=== PATIENT | female | born 1965 | race African-American/Black ===

== ENCOUNTER 2021-02-02 12:15 | Emergency (ER) | payer OTHER ==
[2021-02-02] MEDS ORDERED: hydroCHLOROthiazide 25 MG TAB ONE (14:29)
--- NOTE | 2021-02-02 17:17 | EDPHYS ---
Physician Documentation [facility] Name: Gloria Sanchez Age: 55 yrs Sex: Female : 1965 Arrival Date: 02/02/2021 Time: 12:16 Bed 19 Private MD: Bimal Acevedo E ED Physician [facility] HPI: 02/02 17:10 This 55 yrs old Black Female presents to ER via Ambulatory with complaints of Oscar jr8 blood pressure. 17:10 Patient stated that she was at PCP office today for routine evaluation. Stated that her jr8 BP was elevated there and directed her to ED for further evaluation. Denies any symptoms at this time. Severity of symptoms: At their worst the symptoms were very mild. chronic. The patient has been recently seen by a physician:. Historical: - Allergies: 13:02 Sulfa (Sulfonamide Antibiotics); iw 13:02 wool; iw - PMHx: 13:02 Hypertension; iw - PSHx: 13:02 Cholecystectomy; iw - Immunization history:: Adult Immunizations not up to date. - Social history:: Smoking status: Patient denies any tobacco usage or history of. ROS: 17:10 Eyes: Negative for injury, pain, redness, and discharge, ENT: Negative for injury, jr8 pain, and discharge, Neck: Negative for injury, pain, and swelling, Cardiovascular: Negative for chest pain, palpitations, and edema, Respiratory: Negative for shortness of breath, cough, wheezing, and pleuritic chest pain, Abdomen/GI: Negative for abdominal pain, nausea, vomiting, diarrhea, and constipation, Back: Negative for injury and pain, MS/Extremity: Negative for injury and deformity, Skin: Negative for injury, rash, and discoloration, Neuro: Negative for headache, weakness, numbness, tingling, and seizure. Exam: 17:10 Constitutional: This is a well developed, well nourished patient who is awake, alert, jr8 and in no acute distress. Cardiovascular: Regular rate and rhythm with a normal S1 and S2. No gallops, murmurs, or rubs. Normal PMI, no JVD. No pulse deficits. Respiratory: Lungs have equal breath sounds bilaterally, clear to auscultation and percussion. No rales, rhonchi or wheezes noted. No increased work of breathing, no retractions or nasal flaring. Abdomen/GI: Soft, non-tender, with normal bowel sounds. No distension or tympany. No guarding or rebound. No evidence of tenderness throughout. Skin: Warm, dry with normal turgor. Normal color with no rashes, no lesions, and no evidence of cellulitis. MS/ Extremity: Pulses equal, no cyanosis. Neurovascular intact. Full, normal range of motion. Neuro: Awake and alert, GCS 15, oriented to person, place, time, and situation. Cranial nerves II-XII grossly intact. Motor strength 5/5 in all extremities. Sensory grossly intact. Cerebellar exam normal. Normal gait. Vital Signs: 13:03 BP 200 / 110; Pulse 82; Resp 18 S; Temp 98.4; Pulse Ox 98% on R/A; Weight 146.06 kg; iw Height 5 ft. 4 in. (162.56 cm); 15:50 BP 175 / 113; Pulse 75; Resp 16 S; Pulse Ox 100% on R/A; ca1 17:24 BP 175 / 84; Pulse 73; Resp 16 S; Pulse Ox 100% on R/A; ca1 13:03 Body Mass Index 55.27 (146.06 kg, 162.56 cm) iw MDM: 16:37 Patient medically screened. 8 17:10 Data reviewed: vital signs, nurses notes, and as a result, I will discharge patient. jr8 Data interpreted: Pulse oximetry: on room air is 100 %. Interpretation: normal. Counseling: I had a detailed discussion with the patient and/or guardian regarding: the historical points, exam findings, and any diagnostic results supporting the discharge/admit diagnosis, the need for outpatient follow up, a family practitioner, to return to the emergency department if symptoms worsen or persist or if there are any questions or concerns that arise at home. ED course: Patient with Asymptomatic Primary essential HTN. Given PO meds here with moderate reduction in BP. Still remains asymptomatic. Will d/c home and refill her BP meds for her. Administered Medications: 14:23 Drug: HydrALAZINE 50 mg Route: PO; iw 17:00 Follow up: Response: No adverse reaction; Blood pressure is lowered ca1 17:17 Drug: Metoprolol 100 mg Route: PO; ca1 17:30 Follow up: Response: No adverse reaction; Blood pressure is lowered ca1 Disposition: 02/02/21 17:16 Discharged to Home. Impression: Essential (primary) hypertension. - Condition is Stable. - Discharge Instructions: Hypertension, DASH Eating Plan. - Prescriptions for hydralazine 25 mg Oral tablet - take 1 tablet by ORAL route 2 times per day with food; 60 tablet. Lasix 20 mg Oral Tablet - take 1 tablet by ORAL route once daily; 30 tablet. Metoprolol Tartrate 100 mg Oral Tablet - take 1 tablet by ORAL route 2 times per day with a meal; 60 tablet. - Medication Reconciliation Form, Thank You Letter, Antibiotic Education, Prescription Opioid Use form. - Follow up: Bimal Acevedo MD; When: 1 week; Reason: Recheck today's complaints, Continuance of care, Re-evaluation by your physician. - Problem is new. - Symptoms are unchanged. Addendum: 02/04/2021 07:16 Co-signature as Attending Physician, Srinivasa St MD I agree with the assessment and k dr plan of care. Signatures: Srinivasa St MD MD kdr Mary Marie, SHAILA RN iw Bright Nagel PA PA jr8 AcLesia baxter RN RN ca1 Corrections: (The following items were deleted from the chart) 02/02 17:28 17:16 02/02/2021 17:16 Discharged to Home. Impression: Essential (primary) ca1 hypertension. Condition is Stable. Forms are Medication Reconciliation Form, Thank You Letter, Antibiotic Education, Prescription Opioid Use. Follow up: Bimal Acevedo; When: 1 week; Reason: Recheck today's complaints, Continuance of care, Re-evaluation by your physician. Problem is new. Symptoms are unchanged. jr8
--- NOTE | 2021-02-02 17:17 | ER ---
Nurse's Notes [facility] Name: Gloria Sanchez Age: 55 yrs Sex: Female : 1965 Arrival Date: 02/02/2021 Time: 12:16 Bed 19 Private MD: Bimal Acevedo E Diagnosis: Essential (primary) hypertension Presentation: 02/02 12:59 Chief complaint: Patient states: was at Dr. Acevedo office, was sent over here because iw her BP was high, 200/110, states she had headache that lasted five minutes today and she had spots in her eyes the other day, states she had not taken her medicine before her appt, takes metoprolol and hydralazine, is out of her hydralazine but she did take her metoprolol before coming to ER. Coronavirus screen: At this time, the client does not indicate any symptoms associated with coronavirus-19. Ebola Screen: Patient negative for fever greater than or equal to 101.5 degrees Fahrenheit, and additional compatible Ebola Virus Disease symptoms Patient denies exposure to infectious person. Patient denies travel to an Ebola-affected area in the 21 days before illness onset. No symptoms or risks identified at this time. Initial Sepsis Screen: Does the patient meet any 2 criteria? No. Patient's initial sepsis screen is negative. Does the patient have a suspected source of infection? No. Patient's initial sepsis screen is negative. Risk Assessment: Do you want to hurt yourself or someone else? Patient reports no desire to harm self or others. Onset of symptoms was February 02, 2021. 12:59 Method Of Arrival: Ambulatory iw 12:59 Acuity: ASHLEE 3 iw 15:53 Acuity: ASHLEE 2 ca1 Historical: - Allergies: 13:02 Sulfa (Sulfonamide Antibiotics); iw 13:02 wool; iw - PMHx: 13:02 Hypertension; iw - PSHx: 13:02 Cholecystectomy; iw - Immunization history:: Adult Immunizations not up to date. - Social history:: Smoking status: Patient denies any tobacco usage or history of. Screenin:49 Abuse screen: Denies threats or abuse. Denies injuries from another. Nutritional ca1 screening: No deficits noted. Tuberculosis screening: No symptoms or risk factors identified. Fall Risk IV access (20 points). Assessment: 15:49 General: Appears in no apparent distress. comfortable, Behavior is calm, cooperative, ca1 appropriate for age. Pain: Denies pain. Neuro: Level of Consciousness is awake, alert, obeys commands, Oriented to person, place, time, situation, Denies blurred vision headache. Cardiovascular: Heart tones S1 S2 present Capillary refill < 3 seconds Patient's skin is warm and dry. Respiratory: Airway is patent Respiratory effort is even, unlabored, Respiratory pattern is regular, symmetrical, Breath sounds are clear bilaterally. GI: Abdomen is round non-distended, obese, Bowel sounds present X 4 quads. Abd is soft and non tender X 4 quads. : No signs and/or symptoms were reported regarding the genitourinary system. EENT: No signs and/or symptoms were reported regarding the EENT system. Derm: Skin is intact, is healthy with good turgor, Skin is pink, warm \T\ dry. Musculoskeletal: Circulation, motion, and sensation intact. Capillary refill < 3 seconds. 17:24 Reassessment: Patient appears in no apparent distress at this time. Patient and/or ca1 family updated on plan of care and expected duration. Pain level reassessed. Patient is alert, oriented x 3, equal unlabored respirations, skin warm/dry/pink. Vital Signs: 13:03 BP 200 / 110; Pulse 82; Resp 18 S; Temp 98.4; Pulse Ox 98% on R/A; Weight 146.06 kg; iw Height 5 ft. 4 in. (162.56 cm); 15:50 BP 175 / 113; Pulse 75; Resp 16 S; Pulse Ox 100% on R/A; ca1 17:24 BP 175 / 84; Pulse 73; Resp 16 S; Pulse Ox 100% on R/A; ca1 13:03 Body Mass Index 55.27 (146.06 kg, 162.56 cm) iw ED Course: 12:16 Patient arrived in ED. am2 12:16 Bimal Acevedo MD is Private Physician. am2 13:01 Triage completed. iw 13:03 Arm band placed on. iw 14:23 Mary Marie, RN is Primary Nurse. iw 15:49 Patient has correct armband on for positive identification. Placed in gown. Bed in low ca1 position. Call light in reach. Side rails up X2. residential real estate assistant on. Pulse ox on. NIBP on. Pillow given. 16:36 Bright Nagel PA is PHCP. 8 16:[address] MD is Attending Physician. jr8 17:16 Bimal Acevedo MD is Referral Physician. jr8 17:28 No provider procedures requiring assistance completed. Patient did not have IV access ca1 during this emergency room visit. Administered Medications: 14:23 Drug: HydrALAZINE 50 mg Route: PO; iw 17:00 Follow up: Response: No adverse reaction; Blood pressure is lowered ca1 17:17 Drug: Metoprolol 100 mg Route: PO; ca1 17:30 Follow up: Response: No adverse reaction; Blood pressure is lowered ca1 Outcome: 17:16 Discharge ordered by . jr8 17:28 Discharged to home ambulatory, with significant other. ca1 17:28 Condition: stable 17:28 Discharge instructions given to patient, Instructed on discharge instructions, follow up and referral plans. medication usage, Demonstrated understanding of instructions, follow-up care, medications, Prescriptions given X 3. 17:28 Patient left the ED. ca1 Signatures: Mary Marie, SHAILA RN Bright Nagel PA PA jr8 Precious Pardo am2 Lesia Amaya RN RN ca1 Corrections: (The following items were deleted from the chart) 13:04 13:03 Pulse 82bpm; Resp 18bpm; Spontaneous; Pulse Ox 98% RA; Temp 98.4F; 146.06 kg; iw Height 5 ft. 4 in.; BMI: 55.2; iw 17:24 15:49 General: Appears in no apparent distress. comfortable, Behavior is calm, ca1 cooperative, appropriate for age, ca1 17:24 15:49 Neuro: Level of Consciousness is awake, alert, obeys commands, Oriented to ca1 person, place, time, situation, ca1
[2021-02-02] MEDS ORDERED: METOPROLOL TAR 50 MG TAB ONE (17:32)
[2021-02-03 03:48] VITALS: TEMP 98.4
[2021-02-03 03:49] VITALS: O2SAT 100
[2021-02-03 03:50] VITALS: BP 175/84
== END 2021-02-02 17:28 | disposition home or self-care (01) ==
LOC: ER 12:15
DX: I10 Essential (primary) hypertension (principal); Z88.2 Allergy status to sulfonamides; Z91.048 Other nonmedicinal substance allergy status
CPT/HCPCS: 99284